=== PATIENT | male | born 1965 | race Caucasian/White ===

== ENCOUNTER 2021-09-02 03:50 | Emergency (ER) | payer OTHER, SELFPAY ==
[2021-09-02] VITALS (17 sets, daily range): BP systolic 101–164; BP diastolic 70–94; PULSE 52–70; RESP 12–29; O2SAT 97–100; BMI 23.8
--- NOTE | ~2021-09-02 | XR_ITS ---
XR chest 2V DATE: 09/02/2021 04:20 INDICATION: Left-sided chest pain and shortness of breath, fatigue. TECHNIQUE: PA and lateral views COMPARISON: None FINDINGS: Azygos lobe, normal variant. Normal heart size. No hilar or mediastinal enlargement. Bilateral hyperinflation. No pulmonary infilt rate or consolidation, pleural effusion or pulmonary vascular congestion or pneumothorax is detected. There is levoscoliosis and degenerative spurring of the thoracic spine. IMPRESSION: No active cardiopulmonary disease Levoscoliosis and degenerative change of the thoracic spine Reviewed, dictated and finalized at location A. [employer] PRO[employer] MANAGER
--- NOTE | 2021-09-02 03:54 | ECG_ITS ---
Measurements Intervals [place] Rate: 58 P: 49 MA: 127 QRS: 53 QRSD: 84 T: 66 QT: 398 QTc: 394 Interpretive Statements SINUS BRADYCARDIA WITH SINUS ARRHYTHMIA BASELINE WANDER- II, III BORDERLINE ECG Electronically Signed On 09-02-2021 6:35:41 [employer]SE[employer] SUPERVISOR by Garo Campa D.O.
--- NOTE | 2021-09-02 04:14 | ED.CHESTPAIN ---
HPI - Chest Pain General Chief Complaint: Chest Pain Stated Complaint: chest pain Time Seen by Provider: 09/02/21 04:00 Source: patient Mode of arrival: ambulatory Limitations: no limitations History of Present Illness HPI narrative: Patient is a 56-year-old male complaining of chest pain, left chest, dull, mild, rating to left upper extremity accompanied by lightheadedness that started prior to arrival. Patient denies any shortness of breath, abdominal pain, nausea, vomiting, diaphoresis, fever or chills. Related Data Allergies Allergy/AdvReac Type Severity Reaction Status Date / Time muscle relaxer Allergy Uncoded 10/16/13 14:54 Review of Systems Review of Systems: All systems reviewed & are unremarkable except as noted in HPI and below Constitutional: Constitutional: Denies body ache(s), Denies chills, Denies excessive sweating, Denies fatigue, Denies fever(s), Denies headache(s), Denies lethargy, Denies malaise, Denies weakness and Denies weight loss Eyes: Eyes: Denies blurry vision, Denies change in vision and Denies loss of vision ENT: Denies dizziness, Denies ear discharge, Denies headache(s), Denies lip swelling, Denies epistaxis, Denies nasal congestion, Denies neck pain, Denies throat swelling and Denies tongue swelling Cardiovascular: Cardiovascular: Denies diaphoresis, Denies rapid heart rate, Denies edema, Denies irregular heart rhythm, Denies lightheadedness, Denies palpitations, Denies dyspnea and Denies dyspnea on exertion Respiratory: Respiratory: Denies chest congestion, Denies cough, Denies hemoptysis, Denies dyspnea and Denies dyspnea on exertion Gastrointestinal: Gastrointestinal: Denies abdominal pain, Denies melena, Denies hematochezia, Denies diarrhea, Denies nausea, Denies vomiting and Denies hematemesis Musculoskeletal: Musculoskeletal: Denies abnormal gait, Denies deformity, Denies joint swelling, Denies limited range of motion, Denies neck pain and Denies numbness Neurologic: Denies Abnormal speech present, Denies abnormal gait, Denies confusion, Denies dizziness, Denies headache(s), Denies focal weakness, Denies loss of vision, Denies numbness, Denies Other visual disturbances, Denies Sensory deficit (Neuro) and Denies weakness Psychiatric: Psychiatric: Denies confusion, Denies depression, Denies auditory hallucinations, Denies homicidal ideation and Denies suicidal ideation Endocrine: Endocrine: Denies cold intolerance, Denies excessive sweating, Denies fatigue, Denies heat intolerance and Denies palpitations Hematologic/Lymphatic: Hematologic/Lymphatic: Denies easy bleeding and Denies easy bruising Allergic/Immunologic: Allergic/Immunologic: Denies lip swelling, Denies throat swelling and Denies tongue swelling [facility] Social History Social History Smoking status: Never smoker Alcohol intake: current Comments Past medical history: Coronary disease, CT, hypertension, hyperlipidemia Family history: Coronary artery disease Social history: Positive for smoker, positive for EtOH use, no drug use Exam Const: General: cooperative, healthy appearing, comfortable, no acute distress, well developed, alert and awake; No confusion Orientation/consciousness: oriented to person, oriented to place, oriented to time, patient oriented x3 and No confusion Limitations: no limitations HENMT: Head: normal to inspection, normocephalic and atraumatic Ears: hearing grossly normal bilaterally, TM normal on the right and TM normal on the left General nose exam: Normal external nose present, Normal nares present and No nasal discharge present Face and sinus: normal facial exam Mouth: Yes Normal oral and palatal mucosa present, Yes lip normal, Yes tongue normal and Yes oropharynx normal Throat: posterior oropharynx normal, tonsils normal and uvula midline Eyes: General: appearance normal, both eyes and all related structures Pupils: Equal, round and reactive pupi
[2021-09-02 04:28] LABS: Basophils Absolute Auto 0.1 K/mm3 (0.0-0.1); Basophils Percent Auto 0.7 % (0.2-1.2); Eosinophils Absolute Auto 0.4 K/mm3 (0-0.3); Hematocrit 46.8 % (42.0-52.0); Hemoglobin 16.1 g/dL (14.0-18.0); Immature Granulocyte Absolute 0.03 K/mm3 (0.00-0.031); Immature Granulocyte Percent A 0.4 % (0-0.5); Lymphocytes Percent Auto 25.7 % (18.3-44.2); Mean Corpuscular HGB Conc 34.4 g/dl (32-36); Mean Corpuscular Volume 90.2 fl (80-100); Mean Platelet Volume 10.2 fl (7.4-10.4); Monocytes Absolute Auto 0.6 K/mm3 (0.1-0.6); Neutrophils Absolute Auto 4.1 K/mm3 (1.3-6.7); Neutrophils Percent Auto 58.2 % (45.5-73.1); Platelet Count Result 224 k/mm3 (150-375); Red Blood Count 5.19 M/mm3 (4.6-6.20); Red Cell Distribution Width 13.8 % (11.5-14.5)
[2021-09-02 04:46] LABS: Anion Gap 8 mmol/L (8-16); Blood Urea Nitrogen 23 mg/dL (9-20); Calcium 9.3 mg/dL (8.4-10.2); Carbon Dioxide 24 mmol/L (22-30); Chloride 103 mmol/L (98-107); Estimated CRCL calculation 54 ml/min; Estimated Glomerular Filt Rate > 60; Glucose 98 mg/dL (65-110); Potassium 4.1 mmol/L (3.4-5.0); Sodium 135 mmol/L (137-145)
[2021-09-02 04:58] LABS: Troponin I < 0.012 ng/mL (0.000-0.034)
[2021-09-02 05:05] LABS: Prothrombin Time 13.3 Seconds (11.1-14.7)
[2021-09-02] MEDS: NITROGLYCERIN OINTMENT 1 INCH DOSE TRANSDERM (05:30)
[2021-09-02 07:34] LABS: Troponin I < 0.012 ng/mL (0.000-0.034)
--- NOTE | 2021-09-02 10:10 | PC.NURSE ---
Patient refusing blood draw because he is not allowed to smoke cigarettes. Patient states they knew I smoked, they should have told me then. Patient educated on need to monitor troponin levels. Patient offered nicotine patch, stating I don't want that, they don't work anyway.
--- NOTE | 2021-09-02 10:20 | PM.IMHP ---
H&P: HPI History of Present Illness Date/Time: 09/02/21 10:20 Chief Complaint: Chest pain Narrative: Patient is a 56-year-old male who presents to the ED earlier today with left-sided chest pain which was mild dull radiating in the left upper extremities associated with lightheadedness that started at work yesterday. He came in for evaluation and was evaluated with EKG which did not show any acute abnormality. First set of enzyme was normal and was admitted on observation for chest pain rule out. This morning he was adamant about leaving against medical advise he did wanted to get his blood tested. The reasoning being he was allowed to smoke and was on a allowed to go out. Discussed hospital policy with patient during the visit and offered nicotine patch and admission for further evaluation with potentially a stress test given risk factors. He however did not wanted to stay and wanted to leave. He denies any shortness of breath abdominal pain nausea vomiting diaphoresis or fevers chills. He states he has lot of stress at work and is not able to get to the doctor's to get evaluated for his medical conditions. Review of Systems Review of Systems: - CONSTITUTIONAL: Denies weight loss, fever and chills. - HEENT: Denies changes in vision and hearing - RESPIRATORY: Denies SOB and cough. - CV: Denies palpitations and reports CP. - GI: Denies abdominal pain, nausea, vomiting and diarrhea. - : Denies dysuria and urinary frequency. - MSK: Denies myalgia and joint pain. - SKIN: Denies rash and pruritus. - NEUROLOGICAL: Denies headache and syncope. - PSYCHIATRIC: Denies recent changes in mood. Denies anxiety and depression. All systems reviewed & are unremarkable except as noted in HPI and below Constitutional: Constitutional: Reports fatigue and Reports weakness Neurologic: Reports weakness Endocrine: Endocrine: Reports fatigue [facility] Social History Social History Smoking packs per day: 1 Smoking cigarettes per day: 20.0 Years smoked: 46 Smoking pack-years: 46.00 Smoking status: Heavy tobacco smoker Tobacco type: cigarettes Alcohol intake: current Drinks per week: 18 Substance use: current Substance use type: marijuana Spiritual care concerns: No Meds Home Medications and Allergies Home Medications Medication Instructions Recorded Confirmed Type albuterol sulfate INHALATION PRN 09/02/21 History celecoxib 200 mg PO DAILY 09/02/21 09/02/21 History cyclobenzaprine 10 mg PO DAILY 09/02/21 09/02/21 History fluticasone propionate 50 mcg INTRANASAL DAILY 09/02/21 09/02/21 History gabapentin 400 mg PO DAILY 09/02/21 09/02/21 History metoprolol succinate 25 mg PO DAILY 09/02/21 09/02/21 History minocycline 100 mg PO DAILY 09/02/21 09/02/21 History Allergies Allergy/AdvReac Type Severity Reaction Status Date / Time muscle relaxer Allergy Uncoded 10/16/13 14:54 Vital Signs Vital Signs - 24 hr 09/02/21 04:00 09/02/21 04:04 09/02/21 05:41 Pulse Rate 62 57 L 61 Respiratory Rate 12 15 Blood Pressure 164/94 H 131/83 Pulse Oximetry 100 99 09/02/21 06:11 09/02/21 07:43 09/02/21 08:25 Pulse Rate 52 L 70 58 L Respiratory Rate 14 16 13 Blood Pressure 104/90 101/70 Pulse Oximetry 100 100 99 09/02/21 08:31 09/02/21 08:32 09/02/21 08:45 Pulse Rate 62 60 60 Respiratory Rate 15 14 14 Blood Pressure 105/70 Pulse Oximetry 99 97 98 09/02/21 09:00 09/02/21 09:15 09/02/21 09:31 Pulse Rate 55 L 66 70 Respiratory Rate 12 16 16 Blood Pressure 113/75 Pulse Oximetry 98 98 Exam Narrative: GENERAL: The patient is well developed, not in acute distress HEENT: Nonicteric sclerae, PERRLA, EOMI. Oropharynx clear. Moist mucous membranes. Conjunctivae appear well perfused. CHEST: Chest wall is nontender. HEART: Regular rate and rhythm without murmur, rubs, or gallops LUNGS: Clear to auscultation bilaterally. no respi
--- NOTE | 2021-09-02 16:29 | PM.DS ---
DS: Admitting Diagnosis Discharge Date 09/02/2021 Admitting Diagnosis Chest pain DS: Discharge Diagnosis Discharge Diagnosis (1) Chest pain: Qualifiers: Chest pain type: unspecified Qualified Code(s): R07.9 - Chest pain, unspecified Code(s): R07.9 - Chest pain, unspecified Status: Acute Assessment and Plan: # chest pain EKG reviewed with nonspecific ST-T changes chest x-ray normal all labs were normal initial troponin was negative 2nd set is been negative as well was awaiting for 3rd set discussed stress test for further evaluation. He states he cannot stay any info more and wanted to go out smoking. He also was offered nicotine patch for his tobacco abuse. Is adamant at leaving in and she signed out AMA. He is advised to follow up with his regular doctor and counseled that he needs to take care of his health which takes as prime of importance as his work. A verbalized understanding. All the workup done in the hospital were reviewed with the patient during the visit today but patient later signed out against medical advise DS: Summary Hospital Course Hospital Course: See above Time Spent with Patient Time attestation: Total time spent providing and/or coordinating discharge services: Exam Narrative: GENERAL: The patient is well developed, not in acute distress HEENT: Nonicteric sclerae, PERRLA, EOMI. Oropharynx clear. Moist mucous membranes. Conjunctivae appear well perfused. CHEST: Chest wall is nontender. HEART: Regular rate and rhythm without murmur, rubs, or gallops LUNGS: Clear to auscultation bilaterally. no respiratory distress ABDOMEN: Soft, positive bowel sounds, non-tender, no organomegaly. SKIN: No rash, no excessive bruising, petechiae, or purpura. NEUROLOGIC: Cranial nerves II-XII intact, alert and oriented x 3, no gross motor deficits EXTREMITIES: no edema, cyanosis or clubbing DS: Data Data Completed and Pending Labs on day of discharge: Labs from last 24 hours 09/02/21 09/02/21 09/02/21 06:50 04:02 04:02 WBC RBC Hgb Hct MCV MCH MCHC RDW Plt Count MPV Immature Gran % (Auto) Neut % (Auto) Lymph % (Auto) Bremer % (Auto) Eos % (Auto) Baso % (Auto) Lymph # (Auto) Bremer # (Auto) Eos # (Auto) Baso # (Auto) Abs Immat Gran (auto) Absolute Neuts (auto) Absolute Nucleated RBC Nucleated RBC % PT 13.3 INR 1.0 APTT 27.0 Sodium 135 L Potassium 4.1 Chloride 103 Carbon Dioxide 24 Anion Gap 8 BUN 23 H Creatinine 1.10 Estim Creat Clear Calc 54 Estimated GFR > 60 Glucose 98 Calcium 9.3 Troponin I < 0.012 < 0.012 09/02/21 04:02 WBC 7.0 RBC 5.19 Hgb 16.1 Hct 46.8 MCV 90.2 MCH 31.0 MCHC 34.4 RDW 13.8 Plt Count 224 MPV 10.2 Immature Gran % (Auto) 0.4 Neut % (Auto) 58.2 Lymph % (Auto) 25.7 Bremer % (Auto) 9.0 H Eos % (Auto) 6.0 H Baso % (Auto) 0.7 Lymph # (Auto) 1.80 Bremer # (Auto) 0.6 Eos # (Auto) 0.4 H Baso # (Auto) 0.1 Abs Immat Gran (auto) 0.03 Absolute Neuts (auto) 4.1 Absolute Nucleated RBC 0.0 Nucleated RBC % 0.0 PT INR APTT Sodium Potassium Chloride Carbon Dioxide Anion Gap BUN Creatinine Estim Creat Clear Calc Estimated GFR Glucose Calcium Troponin I Discharge Plan Discharge Patient Disposition: Left Against Medical Advice Discharge Medications: No Action celecoxib 200 mg capsule 200 mg PO DAILY RF: 0 cyclobenzaprine 10 mg tablet 10 mg PO DAILY RF: 0 minocycline 100 mg capsule 100 mg PO DAILY RF: 0 gabapentin 400 mg capsule 400 mg PO DAILY RF: 0 metoprolol succinate 25 mg tablet extended release 24 hr 25 mg PO DAILY RF: 0 albuterol sulfate 90 mcg/actuation HFA aerosol inhaler INHALATION PRN (Reason: Shortness Of Breath Or Wheezing) RF: 0 fluticasone propionate 50 mcg/actuation spray,suspension 50 mcg INTRANASAL DAILY RF: 0
== END 2021-09-02 10:44 | disposition left against medical advice (07) ==
LOC: ANHED 05:14 → ANHIMU 16:30
PROVIDERS: Emergency Provider Emergency Medicine; PCP Internal Medicine; Visit Provider Internal Medicine
DX: R07.9 Chest pain, unspecified (principal); I25.10 Atherosclerotic heart disease of native coronary artery without angina pectoris; I25.2 Old myocardial infarction; I10 Essential (primary) hypertension; E78.5 Hyperlipidemia, unspecified; F17.210 Nicotine dependence, cigarettes, uncomplicated; R00.1 Bradycardia, unspecified
CPT/HCPCS: 36415; 71046; 80048; 84484; 85025; 85610; 85730; 93005; 99284; 99285; A9270

== ENCOUNTER 2022-11-10 14:14 | Outpatient (CLI) | payer OTHER, SELFPAY | END 2022-11-10 14:15 | disposition home or self-care (01) | LOC: ANHBWCAUD 14:16 | PROVIDERS: PCP Internal Medicine; Visit Provider Internal Medicine | DX: H91.90 Unspecified hearing loss, unspecified ear (principal) | CPT/HCPCS: 92557; 92567 ==

== ENCOUNTER 2023-03-19 00:43 | Day surgery (SDC) | payer OTHER, SELFPAY ==
--- NOTE | 2023-03-17 17:31 | PM.IMHP ---
H&P: HPI History of Present Illness Date/Time: 03/17/23 17:31 Chief Complaint: vocal cord lesion Narrative: planned procedure Review of Systems Review of Systems: All systems reviewed & are unremarkable except as noted in HPI and below PMFSH Past Medical History Medical History Chest pain Social History Social History Social History: Caffeine-tea Smoking packs per day: 1 Smoking cigarettes per day: 20.0 Years smoked: 46 Smoking pack-years: 46.00 Smoking status: Heavy tobacco smoker Tobacco type: cigarettes Alcohol intake: current Drinks per week: 18 Substance use: current Substance use type: marijuana Lack of Transportation: No Lack of Food: Never True Current Housing: I Do Not Have Housing Concerned About Future Housing: No Difficulty Paying Gas/Electric Bills: No Difficulty Paying for Meds: No Currently Unemployed: No Education: Trade/Vocational Certificate Difficulty w/ Childcare or Family Care: No Additional living arrangements comments: Pt lives in a mot room Spiritual care concerns: No Meds Home Medications and Allergies Home Medications Medication Instructions Recorded Confirmed Type albuterol sulfate 90 mcg/actuation inhalation PRN Shortness Of Breath 09/02/21 03/08/23 History aerosol inhaler Or Wheezing fluticasone propionate 50 50 mcg intranasal DAILY 09/02/21 03/08/23 History mcg/actuation nasal spray,suspension desvenlafaxine succinate 25 mg 25 mg PO DAILY 02/18/23 03/08/23 History tablet,extended release 24 hr metoprolol succinate 25 mg 25 mg PO DAILY #90 tabs 02/24/23 03/08/23 Rx tablet,extended release 24 hr minocycline 100 mg capsule 100 mg PO DAILY #90 caps 02/24/23 03/08/23 Rx naproxen 500 mg tablet 500 mg PO BID PRN pain #60 tabs 02/24/23 03/08/23 Rx fluconazole 200 mg tablet 200 mg PO DAILY #14 tabs 03/10/23 Rx Allergies Allergy/AdvReac Type Severity Reaction Status Date / Time muscle relaxer Allergy Severe Hives Uncoded 03/08/23 14:19 Exam Narrative: Normal exam Assessment and Plan Assessment and plan (1) 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 Risks were discussed including bleeding infection failure to obtain diagnosis need for repeat procedure hoarseness change in voice vocal cord paralysis damage to any structures above the clavicle by myself damage to dentition damaged gingiva. Patient voiced her understanding and agreed.
[2023-03-18 12:26] VITALS: BMI 21.4
--- NOTE | 2023-03-18 12:32 | PC.NURSE ---
Report to the Outpatient Waiting Room, entrance under the green pavilion located off [facility], at time 1045 on date 03/19/23. Planned Procedure Time: 1245. Time changes happen often and if your time is changed the preop area will call you the afternoon before. - You and your visitor will be asked to self-screen and do not enter if you have any COVID symptoms. - A mask is optional within the hospital at this time. Patients may have clear liquids (water, carbonated beverages, clear teas, apple juice) until 3 hours prior to surgery with a maximum of 20 ounces. - No food from midnight until time of surgery Take the following medications with a SIP of water the morning of surgery: METOPROLOL DO NOT STOP ANY OF YOUR OTHER PRESCRIPTION MEDICATIONS PRIOR TO SURGERY EXCEPT THE FOLLOWING Medications to discontinue per physician: N/A Date to take last dose: N/A Please no make-up, nail bahamian, hairspray, perfume, deodorant, or body powder the day of surgery. No jewelry (including any body piercings) or valuables the day of surgery, leave them at home. Please take a shower or bath the night before, or the morning of, surgery with an antibacterial soap. Wear comfortable, loose fitting clothing. - Jewelry must be removed prior to entering the operating room. Rings and piercings that are not removed may be cut off. - The hospital will not accept responsibility for valuables. - Please leave all valuables, including medications, at home the day of surgery. If you are going home after surgery, a licensed log truck driver must drive you home. - NO public transportation without another adult if you receive anesthesia. - We recommend that an adult stay with you for 24 hours following discharge. - We also recommend that you do not drive, make important decision, drink alcoholic beverages, or take any drugs that were not prescribed by your health care provider for at least 24 hours after your discharge time. Follow any additional instructions given to you from your surgeon. If you or anyone in your household have experienced Covid symptoms in the past week, please notify your surgeon or the nurse liaison at the phone number below for possible testing. Telephone instructions given to PT - NANDA RILEY and asked if any additional questions and then verbalized understanding. Patient advised to call surgeon office or pre surgery nurse liaison [phone] if any additional questions.
[2023-03-19] VITALS (8 sets, daily range): BP systolic 113–153; BP diastolic 66–93; PULSE 56–72; RESP 16–20; TEMP 36.1–36.9; O2SAT 98–100
--- NOTE | 2023-03-19 09:56 | WPDHPUPDATE1 ---
History and Physical Update Update Date/Time: 03/19/23 09:56 History and Physical has been reviewed, including an updated exam of the patient. There are NO changes in the patient's condition. Risks, benefits, and alternatives have been discussed and questions answered. Patient agrees to proceed with procedure.
--- NOTE | 2023-03-19 12:31 | ECG_ITS ---
Measurements Intervals [place] Rate: 54 P: 63 [place]: 137 QRS: 65 QRSD: 89 T: 73 QT: 401 QTc: 382 Interpretive Statements SINUS BRADYCARDIA COMPARED TO ECG 09/02/2021 03:56:15 NO SIGNIFICANT CHANGES Electronically Signed On 03-19-2023 13:51:36 CDT by Kristy Nelson M.D.
--- NOTE | 2023-03-19 12:55 | WPDANESEPPF ---
Anes - Initial Pre Proc Eval Procedure: Operation Date: 03/19/23 12:45 Proposed Procedures p Microlaryngoscopy with Biopsy - Rj Del Valle MD Date/Time: 03/19/23 12:55 Surgeon: Rj Del Valle MD Pre Op Diagnosis: Lt Vocal Cord Mass Patient Data Age: 58 Gender: M Height: 1.63 m Weight: 56.7 kg Last Vital Signs Temp 36.9 C 03/19/23 12:10 Pulse 72 03/19/23 12:10 Resp 18 03/19/23 12:10 BP 138/93 H 03/19/23 12:10 Pulse Ox 99 03/19/23 12:10 O2 Del Method Room Air 03/19/23 12:10 Allergies Allergy/AdvReac Type Severity Reaction Status Date / Time muscle relaxer Allergy Severe Hives Uncoded 03/19/23 12:19 Home Medications Medication Instructions Recorded Confirmed Type albuterol sulfate 90 mcg/actuation 1 inh inhalation Q4H PRN Shortness 09/02/21 03/19/23 History aerosol inhaler Of Breath Or Wheezing fluticasone propionate 50 50 mcg intranasal DAILY 09/02/21 03/19/23 History mcg/actuation nasal spray,suspension metoprolol succinate 25 mg 25 mg PO DAILY #90 tabs 02/24/23 03/19/23 Rx tablet,extended release 24 hr minocycline 100 mg capsule 100 mg PO DAILY #90 caps 02/24/23 03/19/23 Rx naproxen 500 mg tablet 500 mg PO BID PRN pain #60 tabs 02/24/23 03/19/23 Rx Patient hx anesthesia problems: none Family hx anesthesia problems: none Results Review: All pre-operative results and documents have been reviewed as part of the pre-operative evaluation. [facility] Past Medical History Medical History Chest pain Social History Social History Social History: Caffeine-tea Smoking packs per day: 1 Smoking cigarettes per day: 20.0 Years smoked: 47 Smoking pack-years: 47.00 Smoking status: Current every day smoker Tobacco type: cigarettes Additional smoking assessment comments: WAS AT 2 PPD, THEN CUT BACK TO 1 PPD, NOW DOWN TO 1/2 PPD Alcohol intake: current Drinks per week: 18 Alcohol use details: RARE Substance use: current Substance use type: marijuana Lack of Transportation: No Lack of Food: Never True Current Housing: I Do Not Have Housing Concerned About Future Housing: No Difficulty Paying Gas/Electric Bills: No Difficulty Paying for Meds: No Currently Unemployed: No Education: Trade/Vocational Certificate Difficulty w/ Childcare or Family Care: No Living arrangements: alone Additional living arrangements comments: Pt lives in a motel room Spiritual care concerns: No Anes - Eval Final PreProcedure Day of Procedure 03/19/23 12:55 Patient weight: normal Heart: regular rate and rhythm Lungs: decreased breath sounds Airway: Mallampati scale class II Neurological: alert and oriented Last oral intake: 2 hours ASA classification: III Emergent: no Anesthetic plan: proceed Anesthesia type and monitoring: general ETT and standard monitoring Results Review: All pre-operative results and documents have been reviewed as part of the pre-operative evaluation. Informed Consent: The patient's anesthetic plan and its attendant risks and benefits were discussed with the patient/family/POA. Questions were solicited and answers provided to the satisfaction of the patient/family/POA.
--- NOTE | 2023-03-19 13:00 | WPDHPUPDATE1 ---
History and Physical Update Update Date/Time: 03/19/23 13:00 removed laterality from H&P simply vocal cord biopsy direct laryngoscopy
[2023-03-19] MEDS: OXYMETAZOLINE HCL 0.05% NAS 15 ML BTL (*BKC) 1 SPRAY XX (13:34)
[2023-03-19] MEDS: LACTATED RINGERS 1,000 ML 30 ML IV CONT ×2 (13:47→15:00)
--- NOTE | 2023-03-19 14:03 | W.PM.PROC2 ---
Procedure Note - Detailed Date of Procedure 03/19/23 Pre-op Diagnosis Lt Vocal Cord Mass Post-op Diagnosis Same Procedure Performed Are Clarissa could be, biopsy of left vocal cord Surgeon Rj Del Valle MD Anesthesia General Indications see above Findings vocal cord mass extending to the false cord superiorly largely filling the left cord subglottis appeared clear adequate biopsy Description of Procedure patient identified consent verified in the preoperative holding area. Patient brought to the operating room. Time-out performed. General anesthesia induced endotracheal tube inserted. Patient prepped draped position procedure confirmed. Second time-out performed. Dedo laryngoscope inserted into the airway easily visible left vocal cord mass. This was biopsied 3 times. Afrin-soaked pledget was then placed over this for 1 minute then removed no further bleeding. Laryngoscope removed. Gingiva recovered with a Ray-Snoia which was also accounted for. Patient tolerated the procedure well. Blood loss 1 cc. Care the patient given Anesthesiology patient taken to PACU I performed all dictated portions of the procedure. Estimated Blood Loss 1 Drains No Packing No Pathology Yes Complications No immediate complications Condition Stable Disposition PACU [facility] Billing Surgery - Charge Forward: Surgery Billing
[2023-03-19] MEDS: fentaNYL CITRATE INJ (*CRX) 100 MCG/2 ML VIAL 25 MCG IV PUSH ×4 (14:14→14:30)
--- NOTE | 2023-03-19 14:52 | SUR.PHASEII ---
[facility] CALL[facility]; SAID TO CALL WHEN PATIENT IS READY.
--- NOTE | 2023-03-19 15:10 | SUR.PHASEII ---
PATIENT STATES HE FEELS LIGHT-HEADED. IVP'S RESTARTED. TAKING PO FLUIDS WELL.
--- NOTE | 2023-03-19 15:32 | SUR.PHASEII ---
[facility] CALLED TO MANAGER DATABASE PATIENT. PATIENT WALKING WELL WITH CANE. STATES HE HAS MINIMAL LIGHTHEADEDNESS AND IS ASKING TO GO HOME.
== END 2023-03-19 16:35 | disposition home or self-care (01) ==
PROVIDERS: PCP Internal Medicine; Visit Provider Otolaryngology
PROC: 0CJS8ZZ Inspection of Larynx, Via Natural or Artificial Opening Endoscopic (ICD-10-PCS; CPT 31535; principal; 2023-03-19 12:45)
DX: C32.0 Malignant neoplasm of glottis (principal); F17.210 Nicotine dependence, cigarettes, uncomplicated; F12.90 Cannabis use, unspecified, uncomplicated; Z79.51 Long term (current) use of inhaled steroids
CPT/HCPCS: 31535; 88305; 88342; 93005; A9270; J0330; J1100; J2250; J2405; J2704; J3010; J7120